=== PATIENT | female | born 1990 | race American Indian/Alaskan Native ===

== ENCOUNTER 2021-12-24 09:50 | Outpatient (CLI) | payer MEDICAID ==
--- NOTE | 2021-12-24 12:12 | Ultrasound Report ---
ULTRASOUND OBSTETRIC INDICATION / CLINICAL INFORMATION: 0026.90;size and date ; viability. Clinical Gestational Age (GA) in weeks, days: 5 weeks 6 days TECHNIQUE: Transabdominal. COMPARISON: None available. FINDINGS: GESTATIONAL SAC: Well-defined oval shape and intrauterine in location. YOLK SAC: No significant abnormality. EMBRYO/FETUS: No significant abnormality. - Welsh-Rump Length = 0.6 - 0.7 cm = 6.3 weeks.days - Heart Rate, beats per minute (if present) = 126 BPM ADNEXA: No significant abnormality. FREE FLUID: None. ADDITIONAL FINDINGS: Multiple uterine fibroids. The largest is visualized right lateral fundus measur ing 7.8 cm. IMPRESSION: 1. Single, living intrauterine with estimated sonographic age of 6.3 weeks.days. 2. Multiple uterine fibroids measuring up to 7.8 cm. Scribed by: Mely Skinner RDMS, RVT, NAVIN Scribed: 12/24/2021 10:40 AM I have reviewed the images, agree with this report, and edited this report as needed. Signer Name: Klaus Mckeon MD Signed: 12/24/2021 12:08 PM Workstation Name: [employer]
== END 2021-12-24 09:51 | disposition home or self-care (01) ==
LOC: US 09:50
DX: O34.11 Maternal care for benign tumor of corpus uteri, first trimester (principal); Z3A.08 8 weeks gestation of pregnancy
CPT/HCPCS: 76801